=== PATIENT | female | born 1940 | race Caucasian/White ===

== ENCOUNTER 2017-08-13 16:20 | Emergency (ER) | payer MEDICARE ==
[~2017-08-13] VITALS: Ht 167.6 cm; Wt 61.2 kg
[~2017-08-13 16:20] MED LIST: ALEN35 PO; CALCIUM; MULVITA PO; Pepcid40 MG PO; RISE35; TRAM50 PO
[2017-08-13 16:46] LABS: BASOPHILS ABSOLUTE AUTO 0.06 K/mm3 (0.00-0.23); BASOPHILS PERCENT AUTO 1 % (0-2); EOSINOPHILS ABSOLUTE AUTO 0.03 K/mm3 (0.00-0.68); EOSINOPHILS PERCENT AUTO 0 % (0-6); Hemoglobin 12.7 g/dL (11.5-16.0); IMMATURE GRAN ABSOLUTE AUTO 0.05 K/mm3 (0.00-0.10); IMMATURE GRAN PERCENT AUTO 1 % (0-1); LYMPHOCYTES ABSOLUTE AUTO 1.71 K/mm3 (0.84-5.20); LYMPHOCYTES PERCENT AUTO 16 % (21-46); MONOCYTES ABSOLUTE AUTO 0.64 K/mm3 (0.16-1.47); MONOCYTES PERCENT AUTO 6 % (4-13); Mean Corpuscular HGB 28.8 pg (26.0-34.0); Mean Corpuscular HGB Conc 32.6 g/dL (31.5-36.5); Mean Corpuscular Volume 88 fL (80-100); Mean Platelet Volume 10.6 fL (9.1-12.4); NEUTROPHILS ABSOLUTE AUTO 8.33 K/mm3 (1.96-9.15); NEUTROPHILS PERCENT AUTO 77 % (41-73); Platelet Count 215 K/mm3 (150-400); RDW Coefficient Variation 12.6 % (11.7-14.2); Red Blood Cell Count 4.41 M/mm3 (3.80-5.20); White Blood Cell Count 10.82 K/mm3 (4.00-11.30)
[2017-08-13 16:56] LABS: Source, Urine Catheter
[2017-08-13 17:00] LABS: Bilirubin, Urine Neg (Neg); Blood, Urine 2+ (Neg); Glucose Qualitative, Urine Neg (Neg); Ketones, Urine Neg (Neg); Leukocyte Esterase, Urine Neg (Neg); Nitrite, Urine Neg (Neg); Protein, Urine Neg (Neg); Urobilinogen, Urine NORM (Normal)
[2017-08-13 17:04] LABS: International Normalized Ratio 1.05; Prothrombin Time Results 10.9 Sec (9.7-11.5)
[2017-08-13 17:09] LABS: Alanine Aminotransfer (ALT/SGP 16 U/L (12-78); Albumin, Blood 3.6 g/dL (3.4-5.0); Albumin/Globulin Ratio 1.2 (0.8-1.8); Alk Phos 78 U/L (50-136); Anion Gap 7 mmol/L (6-16); Aspartate Aminotrans (AST/SGOT 23 U/L (12-37); Bilirubin, Total 0.5 mg/dL (0.1-1.0); Blood Urea Nitrogen 12 mg/dL (8-24); Bun/Creatinine Ratio 16.3 (12.0-20.0); CO2, Blood 27 mmol/L (21-32); Calcium, Blood 8.8 mg/dL (8.5-10.1); Chloride, Blood 108 mmol/L (98-108); Creatinine, Blood 0.74 mg/dL (0.40-1.00); Globulin, Blood 3.1 g/dL (2.2-4.0); Glomerular Filtration Rate >60 (60-); Glucose, Blood 158 mg/dL (70-99); Potassium, Blood 3.7 mmol/L (3.5-5.5); Sodium, Blood 142 mmol/L (136-145); Total Protein, Blood 6.7 g/dL (6.4-8.2)
[2017-08-13 17:43] LABS: Appearance, Urine Clear (Clear); Color, Urine Pale Yellow (P-Yellow)
[2017-08-13 17:44] LABS: Bacteria Few /hpf; Squamous Epithelial Cells Not Seen /hpf (Few); White Blood Cells, Urine 0-2 /hpf (0-5)
== END 2017-08-13 17:15 | disposition short-term general hospital (02) ==
LOC: ER 16:20
PROVIDERS: Emergency Medicine
DX: I60.9 Nontraumatic subarachnoid hemorrhage, unspecified (principal); I62.00 Nontraumatic subdural hemorrhage, unspecified; K21.9 Gastro-esophageal reflux disease without esophagitis; E78.5 Hyperlipidemia, unspecified; Z87.891 Personal history of nicotine dependence; Z79.899 Other long term (current) drug therapy
CPT/HCPCS: 36415; 51702; 70450; 71045; 80053; 81001; 83735; 85025; 85610; 85730; 93005; 93010; 99285

== ENCOUNTER 2017-10-03 14:14 | Emergency (ER) | payer MEDICARE ==
[~2017-10-03] VITALS: Ht 162.6 cm; Wt 52.2 kg
[2017-10-03 14:50] LABS: BASOPHILS ABSOLUTE AUTO 0.05 K/mm3 (0.00-0.23); BASOPHILS PERCENT AUTO 1 % (0-2); EOSINOPHILS ABSOLUTE AUTO 0.03 K/mm3 (0.00-0.68); EOSINOPHILS PERCENT AUTO 0 % (0-6); Hematocrit 38.1 % (33.0-51.0); Hemoglobin 12.5 g/dL (11.5-16.0); IMMATURE GRAN ABSOLUTE AUTO 0.04 K/mm3 (0.00-0.10); IMMATURE GRAN PERCENT AUTO 1 % (0-1); LYMPHOCYTES ABSOLUTE AUTO 1.37 K/mm3 (0.84-5.20); LYMPHOCYTES PERCENT AUTO 21 % (21-46); MONOCYTES PERCENT AUTO 12 % (4-13); Mean Corpuscular HGB 29.6 pg (26.0-34.0); Mean Corpuscular HGB Conc 32.8 g/dL (31.5-36.5); Mean Corpuscular Volume 90 fL (80-100); Mean Platelet Volume 9.4 fL (9.1-12.4); NEUTROPHILS PERCENT AUTO 66 % (41-73); Platelet Count 252 K/mm3 (150-400); RDW Coefficient Variation 14.6 % (11.7-14.2); RDW Standard Deviation 48.6 fL (35.1-46.3); Red Blood Cell Count 4.23 M/mm3 (3.80-5.20); White Blood Cell Count 6.69 K/mm3 (4.00-11.30)
[2017-10-03 15:17] LABS: Anion Gap 8 mmol/L (6-16); Blood Urea Nitrogen 19 mg/dL (8-24); Bun/Creatinine Ratio 29.6 (12.0-20.0); CO2, Blood 29 mmol/L (21-32); Calcium, Blood 8.5 mg/dL (8.5-10.1); Chloride, Blood 101 mmol/L (98-108); Creatinine, Blood 0.64 mg/dL (0.40-1.00); Glomerular Filtration Rate >60 (60-); Glucose, Blood 105 mg/dL (70-99); Potassium, Blood 3.9 mmol/L (3.5-5.5); Sodium, Blood 138 mmol/L (136-145)
[2017-10-03 16:00] LABS: Source, Urine Catheter
[2017-10-03 16:04] LABS: Bilirubin, Urine Neg (Neg); Blood, Urine 2+ (Neg); Glucose Qualitative, Urine Neg (Neg); Ketones, Urine Neg (Neg); Leukocyte Esterase, Urine 3+ (Neg); Nitrite, Urine Pos (Neg); Protein, Urine 1+ (Neg); Urobilinogen, Urine 1+ (Normal)
[2017-10-03 16:23] LABS: Appearance, Urine Turbid (Clear); Color, Urine Yellow (P-Yellow)
[2017-10-03 16:24] LABS: White Blood Cells, Urine 50-100 /hpf (0-5)
[2017-10-03 16:25] LABS: Amorphous Light (0-Heavy); Bacteria Many /hpf; Squamous Epithelial Cells Rare /hpf (Few)
[2017-10-03] MEDS ORDERED: ALBU2.5V5 NEB (16:38)
[2017-10-03] MEDS ORDERED: ACET325 PO (16:38)
[2017-10-03] MEDS ORDERED: [UNRECOGNIZED DRUG - OTHER] PO (16:39)
[2017-10-03] MEDS ORDERED: Colace100 MG PO (16:39)
[2017-10-03] MEDS ORDERED: Milk Of Ma400 MG/5 M PO (16:40)
[2017-10-03] MEDS ORDERED: TAMS.4ER PO (16:40)
[2017-10-03] MEDS ORDERED: BISA10S PR (16:40)
[2017-10-03] MEDS ORDERED: MIRALAX17 GM PO (16:41)
[2017-10-03] MEDS ORDERED: ONDA4 PO (16:42)
[2017-10-03] MEDS ORDERED: Hair, Skin & N1 EACH PO (16:42)
[2017-10-03] MEDS ORDERED: FAMO40 PO (16:42)
[2017-10-03] MEDS ORDERED: TIZANIDINE HCL2 MG PO (16:43)
== END 2017-10-03 19:50 | disposition short-term general hospital (02) ==
LOC: ER 14:14
PROVIDERS: Emergency Medicine
DX: I26.99 Other pulmonary embolism without acute cor pulmonale (principal); Z88.5 Allergy status to narcotic agent; Z88.8 Allergy status to other drugs, medicaments and biological substances; Z79.899 Other long term (current) drug therapy; D64.9 Anemia, unspecified; K21.9 Gastro-esophageal reflux disease without esophagitis; Z87.891 Personal history of nicotine dependence
CPT/HCPCS: 36415; 71260; 80048; 81001; 83880; 84484; 85025; 87077; 87086; 87186; 93005; 93010; 93970; 96361; 96374; 99285; J0696; J7030; Q9967

== ENCOUNTER 2017-12-29 07:40 | Emergency (ER) | payer MEDICARE ==
[~2017-12-29] VITALS: Ht 165.1 cm; Wt 52.2 kg
[~2017-12-29 07:40] MED LIST changes: +ACET325 PO; +ALBU2.5V5 NEB; +BISA10S PR; +Colace100 MG PO; +FAMO40 PO; +Hair, Skin & N1 EACH PO; +MIRALAX17 GM PO; +Milk Of Ma400 MG/5 M PO; +ONDA4 PO; +TAMS.4ER PO; +TIZANIDINE HCL2 MG PO; +[UNRECOGNIZED DRUG - OTHER] PO
[2017-12-29 08:15] LABS: Source, Urine Catheter
[2017-12-29 08:28] LABS: BASOPHILS ABSOLUTE AUTO 0.05 K/mm3 (0.00-0.23); BASOPHILS PERCENT AUTO 1 % (0-2); EOSINOPHILS ABSOLUTE AUTO 0.08 K/mm3 (0.00-0.68); EOSINOPHILS PERCENT AUTO 1 % (0-6); Hematocrit 38.6 % (33.0-51.0); Hemoglobin 12.4 g/dL (11.5-16.0); IMMATURE GRAN ABSOLUTE AUTO 0.01 K/mm3 (0.00-0.10); IMMATURE GRAN PERCENT AUTO 0 % (0-1); LYMPHOCYTES ABSOLUTE AUTO 3.67 K/mm3 (0.84-5.20); LYMPHOCYTES PERCENT AUTO 51 % (21-46); MONOCYTES ABSOLUTE AUTO 0.65 K/mm3 (0.16-1.47); MONOCYTES PERCENT AUTO 9 % (4-13); Mean Corpuscular HGB 28.8 pg (26.0-34.0); Mean Corpuscular HGB Conc 32.1 g/dL (31.5-36.5); Mean Corpuscular Volume 90 fL (80-100); Mean Platelet Volume 9.8 fL (9.1-12.4); NEUTROPHILS ABSOLUTE AUTO 2.81 K/mm3 (1.96-9.15); NEUTROPHILS PERCENT AUTO 39 % (41-73); Platelet Count 281 K/mm3 (150-400); RDW Coefficient Variation 14.8 % (11.7-14.2); RDW Standard Deviation 48.9 fL (35.1-46.3); White Blood Cell Count 7.27 K/mm3 (4.00-11.30)
[2017-12-29 08:30] LABS: Blood, Urine 4+ (Neg); Glucose Qualitative, Urine Neg (Neg); Ketones, Urine 3+ (Neg); Leukocyte Esterase, Urine 3+ (Neg); Nitrite, Urine Neg (Neg); Protein, Urine 3+ (Neg); Specific Gravity, Urine 1.025 (1.003-1.022); Urobilinogen, Urine 1+ (Normal)
[2017-12-29 08:35] LABS: International Normalized Ratio 1.86; Prothrombin Time Results 18.5 Sec (9.7-11.5)
[2017-12-29 08:38] LABS: Alanine Aminotransfer (ALT/SGP 36 U/L (12-78); Albumin, Blood 1.9 g/dL (3.4-5.0); Albumin/Globulin Ratio 0.6 (0.8-1.8); Alk Phos 71 U/L (50-136); Anion Gap 10 mmol/L (6-16); Aspartate Aminotrans (AST/SGOT 39 U/L (12-37); Bilirubin, Total 0.3 mg/dL (0.1-1.0); Blood Urea Nitrogen 9 mg/dL (8-24); Bun/Creatinine Ratio 19.9 (12.0-20.0); CO2, Blood 29 mmol/L (21-32); Calcium, Blood 7.7 mg/dL (8.5-10.1); Chloride, Blood 104 mmol/L (98-108); Creatinine, Blood 0.45 mg/dL (0.40-1.00); Glomerular Filtration Rate >60 (60-); Glucose, Blood 73 mg/dL (70-99); Potassium, Blood 3.5 mmol/L (3.5-5.5); Sodium, Blood 143 mmol/L (136-145); Total Protein, Blood 4.9 g/dL (6.4-8.2); Troponin I <0.015 ng/mL (0.000-0.040)
[2017-12-29 08:56] LABS: Appearance, Urine Cloudy (Clear); Bilirubin, Urine 1+ (Neg); Color, Urine Yellow (P-Yellow)
[2017-12-29 09:01] LABS: White Blood Cells, Urine TNTC /hpf (0-5)
[2017-12-29 09:02] LABS: Bacteria Many /hpf; Red Blood Cells, Urine TNTC /hpf (0-2); Squamous Epithelial Cells Not Seen /hpf (Few); Yeast/Fungi Urine Many /hpf
[2017-12-29 09:03] LABS: Calcium Oxalate Crystals Few /hpf; Transitional Epithelial Cells Rare /hpf (0-Rare)
[2017-12-29] MEDS ORDERED: Macrobid 100 M100 MG PO (09:38)
== END 2017-12-29 10:20 | disposition home or self-care (01) ==
LOC: ER 07:40
PROVIDERS: Physician Assistant
DX: N39.0 Urinary tract infection, site not specified (principal); R79.1 Abnormal coagulation profile; R91.1 Solitary pulmonary nodule; D64.9 Anemia, unspecified; E03.9 Hypothyroidism, unspecified; K21.9 Gastro-esophageal reflux disease without esophagitis; J44.9 Chronic obstructive pulmonary disease, unspecified; Z88.8 Allergy status to other drugs, medicaments and biological substances; Z88.5 Allergy status to narcotic agent; Z79.899 Other long term (current) drug therapy; Z79.51 Long term (current) use of inhaled steroids; Z86.73 Personal history of transient ischemic attack (TIA), and cerebral infarction without residual deficits; Z87.891 Personal history of nicotine dependence
CPT/HCPCS: 36415; 71260; 80053; 81001; 83690; 83735; 83880; 84484; 85025; 85610; 85730; 87077; 87086; 87186; 93005; 93010; 96360; 99284-25; J7030; Q9967

== ENCOUNTER → 2019-05-07 | Outpatient (CLI) | payer OTHER ==
[~2019-05-07] MED LIST changes: +Macrobid 100 M100 MG PO; +TRAZ50 PO; +WARF2 PO; +WARF4 PO
== END | disposition home or self-care (01) ==
LOC: LAB 16:07 → LAB SHORT 16:07
DX: N39.0 Urinary tract infection, site not specified (principal)
CPT/HCPCS: 87086

== ENCOUNTER 2021-01-01 18:49 | Inpatient (IN) | payer OTHER ==
[~2021-01-01] VITALS: Ht 165.1 cm; Wt 68.0 kg
[2021-01-01 19:25] LABS: BASOPHILS ABSOLUTE AUTO 0.05 K/mm3 (0.00-0.23); BASOPHILS PERCENT AUTO 1 % (0-2); EOSINOPHILS ABSOLUTE AUTO 0.14 K/mm3 (0.00-0.68); EOSINOPHILS PERCENT AUTO 2 % (0-6); Hematocrit 40.5 % (33.0-51.0); Hemoglobin 13.3 g/dL (11.5-16.0); IMMATURE GRAN ABSOLUTE AUTO 0.18 K/mm3 (0.00-0.10); IMMATURE GRAN PERCENT AUTO 2 % (0-1); LYMPHOCYTES ABSOLUTE AUTO 3.24 K/mm3 (0.84-5.20); LYMPHOCYTES PERCENT AUTO 40 % (21-46); MONOCYTES ABSOLUTE AUTO 0.48 K/mm3 (0.16-1.47); MONOCYTES PERCENT AUTO 6 % (4-13); Mean Corpuscular HGB 29.2 pg (26.0-34.0); Mean Corpuscular HGB Conc 32.8 g/dL (31.5-36.5); Mean Corpuscular Volume 89 fL (80-100); Mean Platelet Volume 9.3 fL (9.1-12.4); NEUTROPHILS ABSOLUTE AUTO 4.03 K/mm3 (1.96-9.15); NEUTROPHILS PERCENT AUTO 50 % (41-73); Platelet Count 213 K/mm3 (150-400); RDW Coefficient Variation 14.1 % (11.7-14.2); RDW Standard Deviation 45.9 fL (35.1-46.3); Red Blood Cell Count 4.55 M/mm3 (3.80-5.20); White Blood Cell Count 8.12 K/mm3 (4.00-11.30)
[2021-01-01 19:48] LABS: Alanine Aminotransfer (ALT/SGP 18 U/L (12-78); Albumin, Blood 2.7 g/dL (3.4-5.0); Albumin/Globulin Ratio 0.8 (0.8-1.8); Alk Phos 79 U/L (50-136); Anion Gap 8 mmol/L (6-16); Aspartate Aminotrans (AST/SGOT 21 U/L (12-37); Bilirubin, Total 0.4 mg/dL (0.1-1.0); Blood Urea Nitrogen 14 mg/dL (8-24); Bun/Creatinine Ratio 24.1 (12.0-20.0); CO2, Blood 25 mmol/L (21-32); Calcium, Blood 8.4 mg/dL (8.5-10.1); Chloride, Blood 108 mmol/L (98-108); Creatinine, Blood 0.58 mg/dL (0.40-1.00); Globulin, Blood 3.6 g/dL (2.2-4.0); Glomerular Filtration Rate >60 (60-); Glucose, Blood 144 mg/dL (70-99); Potassium, Blood 3.7 mmol/L (3.5-5.5); Sodium, Blood 141 mmol/L (136-145); Total Protein, Blood 6.3 g/dL (6.4-8.2)
--- NOTE | 2021-01-02 05:53 | NUR ---
SHIFT SUMMARY PATIENT IS RESTING IN BED COMFORTABLY. BED IS IN LOW POSITION. CALL LIGHT IS IN REACH. NO ACUTE CHANGES OVERNIGHT. VITALS HAVE BEEN STABLE. PT ON 2L NC SATURATING >95%. WILL CONTINUE TO MONITOR. WILL GIVE REPORT TO DAY SHIFT RN. PATIENT IS STILL WITHDRAWN.
--- NOTE | 2021-01-02 05:56 | NUR ---
SHIFT SUMMARY PATIENT IS RESTING COMFORTABLLY IN BED. BED IS IN LOW POSITION. PATIENT WAS ADMITTED TO THE FLOOR AT AROUND 0140. PATIENT ARRIVED SEDATED AND WAS RESPONDING TO PAINFUL STIMULI. THIS MORNING PATIENT IS ABLE TO RESPOND TO VERBAL STIMULI BUT SHE HAS NOT OPENED HER EYES YET. NO SEIZURES SINCE SHE GOT TO THE FLOOR. VITALS HAVE BEEN STABLE. SIDERALES WERE PADDED FOR SEIZURE PRECAUTIONS. SUCTION IS SETUP. PATIENT IS ALSO ON TELE MONITORING. WILL GIVE REPORT TO DAY SHIFT RN.
[2021-01-02 08:18] LABS: BASOPHILS ABSOLUTE AUTO 0.04 K/mm3 (0.00-0.23); BASOPHILS PERCENT AUTO 0 % (0-2); EOSINOPHILS PERCENT AUTO 0 % (0-6); Hematocrit 41.1 % (33.0-51.0); Hemoglobin 13.2 g/dL (11.5-16.0); IMMATURE GRAN ABSOLUTE AUTO 0.13 K/mm3 (0.00-0.10); IMMATURE GRAN PERCENT AUTO 1 % (0-1); LYMPHOCYTES ABSOLUTE AUTO 1.54 K/mm3 (0.84-5.20); LYMPHOCYTES PERCENT AUTO 13 % (21-46); MONOCYTES PERCENT AUTO 5 % (4-13); Mean Corpuscular HGB 28.6 pg (26.0-34.0); Mean Corpuscular HGB Conc 32.1 g/dL (31.5-36.5); Mean Corpuscular Volume 89 fL (80-100); Mean Platelet Volume 9.5 fL (9.1-12.4); NEUTROPHILS PERCENT AUTO 81 % (41-73); Platelet Count 224 K/mm3 (150-400); RDW Coefficient Variation 14.2 % (11.7-14.2); RDW Standard Deviation 46.2 fL (35.1-46.3); Red Blood Cell Count 4.61 M/mm3 (3.80-5.20); White Blood Cell Count 12.01 K/mm3 (4.00-11.30)
[2021-01-02 08:37] LABS: Alanine Aminotransfer (ALT/SGP 20 U/L (12-78); Albumin, Blood 2.8 g/dL (3.4-5.0); Albumin/Globulin Ratio 0.8 (0.8-1.8); Alk Phos 77 U/L (50-136); Anion Gap 3 mmol/L (6-16); Aspartate Aminotrans (AST/SGOT 23 U/L (12-37); Bilirubin, Total 0.4 mg/dL (0.1-1.0); Blood Urea Nitrogen 12 mg/dL (8-24); Bun/Creatinine Ratio 21.7 (12.0-20.0); CO2, Blood 27 mmol/L (21-32); CPK Creatine Kinase 73 U/L (26-193); Chloride, Blood 111 mmol/L (98-108); Creatinine, Blood 0.55 mg/dL (0.40-1.00); Globulin, Blood 3.3 g/dL (2.2-4.0); Glomerular Filtration Rate >60 (60-); Glucose, Blood 137 mg/dL (70-99); Potassium, Blood 3.9 mmol/L (3.5-5.5); Sodium, Blood 141 mmol/L (136-145); Total Protein, Blood 6.1 g/dL (6.4-8.2); Troponin I 0.104 ng/mL (0.000-0.040)
[2021-01-02 16:02] LABS: CPK Creatine Kinase 74 U/L (26-193)
--- NOTE | 2021-01-02 18:28 | NUR ---
SHIFT SUMMARY PT ADMITTED FROM THE ED FOR RECURRENT SEIZURES. NO SEIZURES THIS SHIFT. PT UNRESPONSIVE FOR THE VAST MAJORITY OF THE SHIFT BUT EVENTUALLY DID WAKE UP AND IS A/O X3. DOES NOT SEEM TO RECALL THAT SHE HAD SEIZURES. GIVEN KEPPRA THIS AM. 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 PHYSICIAN NOTIFIED. PT TO HAVE MRI TOMORROW. WILL REPORT TO JERAMIE GORDON.
--- NOTE | 2021-01-03 01:17 | NUR ---
DR DE LA ROSA WAS INFORMED ABOUT THE PATIENT'S BLOOD PRESSURE OF 103/35 (63). THE DIASTOLIC WAS LOW AND RN WAS CONCERENED. MD STATED TO WATCH AND CONTINUE TO MONITOR THE PATIENT FOR ANY NEW CHANGES. NO NEW ORDERS.
[2021-01-03 04:37] LABS: BASOPHILS ABSOLUTE AUTO 0.06 K/mm3 (0.00-0.23); BASOPHILS PERCENT AUTO 1 % (0-2); EOSINOPHILS ABSOLUTE AUTO 0.12 K/mm3 (0.00-0.68); EOSINOPHILS PERCENT AUTO 2 % (0-6); Hematocrit 37.7 % (33.0-51.0); Hemoglobin 12.3 g/dL (11.5-16.0); IMMATURE GRAN ABSOLUTE AUTO 0.03 K/mm3 (0.00-0.10); IMMATURE GRAN PERCENT AUTO 0 % (0-1); LYMPHOCYTES PERCENT AUTO 27 % (21-46); MONOCYTES ABSOLUTE AUTO 0.68 K/mm3 (0.16-1.47); MONOCYTES PERCENT AUTO 9 % (4-13); Mean Corpuscular HGB 29.2 pg (26.0-34.0); Mean Corpuscular HGB Conc 32.6 g/dL (31.5-36.5); Mean Corpuscular Volume 90 fL (80-100); Mean Platelet Volume 9.6 fL (9.1-12.4); NEUTROPHILS ABSOLUTE AUTO 4.51 K/mm3 (1.96-9.15); NEUTROPHILS PERCENT AUTO 61 % (41-73); Platelet Count 188 K/mm3 (150-400); RDW Coefficient Variation 14.5 % (11.7-14.2); RDW Standard Deviation 47.3 fL (35.1-46.3); Red Blood Cell Count 4.21 M/mm3 (3.80-5.20)
[2021-01-03 04:54] LABS: Alanine Aminotransfer (ALT/SGP 18 U/L (12-78); Albumin, Blood 2.7 g/dL (3.4-5.0); Alk Phos 66 U/L (50-136); Anion Gap 3 mmol/L (6-16); Aspartate Aminotrans (AST/SGOT 20 U/L (12-37); Bilirubin, Total 0.7 mg/dL (0.1-1.0); Blood Urea Nitrogen 10 mg/dL (8-24); Bun/Creatinine Ratio 17.2 (12.0-20.0); CO2, Blood 29 mmol/L (21-32); Calcium, Blood 8.1 mg/dL (8.5-10.1); Chloride, Blood 111 mmol/L (98-108); Creatinine, Blood 0.58 mg/dL (0.40-1.00); Globulin, Blood 2.8 g/dL (2.2-4.0); Glomerular Filtration Rate >60 (60-); Glucose, Blood 79 mg/dL (70-99); Potassium, Blood 3.7 mmol/L (3.5-5.5); Sodium, Blood 143 mmol/L (136-145); Total Protein, Blood 5.5 g/dL (6.4-8.2)
--- NOTE | 2021-01-03 06:26 | NUR ---
SHIFT SUMMARY PATIENT IS RESTING IN BED COMFORTABLY. BED IS IN LOW POSITION. CALL LIGHT IS IN REACH. PATIENT IS CONFUSED AND HAD TO BE REORIENTED MULTIPLE TIMES. NO SEIZURES DURING THE NIGHT. PATIENT HAD MULTIPLE BOWEL MOVEMENTS. VITALS WERE STABLE EXCEPT BP WHICH MD WAS NOTIFIED ABOUT SEE PREVIOUS NOTES. WILL GIVE REPORT TO DAY SHIFT NURSE.
[2021-01-03 06:46] LABS: Source, Urine Catheter
[2021-01-03 06:49] LABS: Appearance, Urine Clear (Clear); Bilirubin, Urine Neg (Neg); Blood, Urine 4+ (Neg); Color, Urine Yellow (P-Yellow); Glucose Qualitative, Urine Neg (Neg); Ketones, Urine Neg (Neg); Leukocyte Esterase, Urine Neg (Neg); Nitrite, Urine Neg (Neg); Protein, Urine Neg (Neg); Specific Gravity, Urine 1.015 (1.003-1.022); Urobilinogen, Urine NORM (Normal)
[2021-01-03 07:00] LABS: Bacteria Not Seen /hpf; Squamous Epithelial Cells Rare /hpf (Few); White Blood Cells, Urine 0-2 /hpf (0-5)
[2021-01-03] MEDS ORDERED: Calcium Carbon500 MG PO (11:40)
[2021-01-03] MEDS ORDERED: ASPI81CH PO (11:40)
[2021-01-03] MEDS ORDERED: ARTHRITIS PAIN50 GM TOP (11:41)
[2021-01-03] MEDS ORDERED: Diastat2.5 MG PR (16:43)
[2021-01-03] MEDS ORDERED: LEVE500 PO (16:44)
--- NOTE | 2021-01-03 18:44 | NUR ---
AWAITING TRANSPORT FOR DISCHARGE PT SON UPDATED AND EDUCATED ON DC INSTUCTIONS & NEW MEDS OVER THE PHONE. PT TO GIVE PM DOSE OF KEPPRA AND STATES HE UNDERSTANDS. WAITING ON [facility] TO METER INSPECTOR THE PT. THIS RN CALLED AND CONFIRMED THEY WILL STILL BE COMING TO GET THE PT TONIGHT. PT SON UPDATED ABOUT THIS. IV REMOVED & INTACT. PT UP IN BED, EATING DINNER. CALL LIGHT IN REACH.
--- NOTE | 2021-01-03 19:05 | NUR ---
PT DISCHARGED PICKED UP BY [facility]. KIRSTEN, PTS SON NOTIFIED.
--- NOTE | 2021-01-04 08:24 | NUR ---
01/04/21 (HOSPITAL SYSTEM DOWN YESTERDAY, COULD NOT PUT IN NOTE UNTIL TODAY) - KJB PER CHART REVIEW WITH DR. POLLARD, PT IS HAVE MRI, SPEECH EVAL, OT AND PT TODAY. PLAN IS D/C HOME TODAY. PT WILL NEED MEDICAL TRANSPORT (GURNY) BECAUSE THE PT IS NOT ABLE TO BEND TO SIT UP. CALLED SON AND HE REPORTS THAT WHEN SHE WAS TAKEN TO THE HOSPITAL THEY HAD TO USE 4 PEOPLE AND A SLING TO GET HER OUT OF THE HOME. SON REPORTS THAT PT HAS A CAREGIVER WITH [employer] AND USED TO BE ACTIVE WITH [employer] SON IS HER CAREGIVER IN THEIR SINGLE-STORY HOME. THE HOME HAS WORKING UTILITIES AND 4-5 STAIRS IN THE FRONT OF THE HOME. SON REPORTS THAT A GURNEY IS NOT ABLE TO MAKE THE TURNS INTO THE HOME. SON REPORTS THAT AT PT MAKES TELEHEALTH AND [facility] IN [place] IS HER PHARMACY. JESSICA CURTIS IS THE PT S POA. SON EXPRESSED A NEED FOR GETTING HELP TO BUILD A RAMP. HE HAS THE MATERIALS BUT IS NOT PHYSICAL ABLE TO BUILD IT. WILL REACH OUT TO THE CLINIC TO SEE IF THERE IS ANYTHING THEY CAN COME UP WITH TO HELP HIM. -KJB 01/03/21- PER CHART REVIEW WITH DR. POLLARD, PT COULD POTENTIALLY D/C HOME TODAY. SHE IS GOING TO ORDER AND MRI, SPEECH EVAL & OT/PT. PT WILL NEED TRANSPORTATION HOME AND HELP GETTING THE PT INTO BED, SON IS NOT ABLE TO DO THIS BY HIMSELF. WILL LET TRANSPORT KNOW AT DISCHARGE.-KJB
== END 2021-01-03 19:05 | disposition home health service (06) | DRG 57 ==
LOC: ER 18:49 → SURS 18:50
PROVIDERS: Family Medicine; Student in an Organized Health Care Education/Training Program; ADMIT Internal Medicine
DX: I69.298 Other sequelae of other nontraumatic intracranial hemorrhage (principal); R56.9 Unspecified convulsions; G93.89 Other specified disorders of brain; E86.0 Dehydration; M19.90 Unspecified osteoarthritis, unspecified site; I10 Essential (primary) hypertension; R25.1 Tremor, unspecified; R79.89 Other specified abnormal findings of blood chemistry; K43.9 Ventral hernia without obstruction or gangrene; R94.31 Abnormal electrocardiogram [ECG] [EKG]; J44.9 Chronic obstructive pulmonary disease, unspecified; K21.9 Gastro-esophageal reflux disease without esophagitis; E89.0 Postprocedural hypothyroidism; N31.9 Neuromuscular dysfunction of bladder, unspecified; I69.20 Unspecified sequelae of other nontraumatic intracranial hemorrhage; Z86.718 Personal history of other venous thrombosis and embolism; Z74.01 Bed confinement status; Z86.69 Personal history of other diseases of the nervous system and sense organs; Z87.891 Personal history of nicotine dependence; Z88.5 Allergy status to narcotic agent; Z88.8 Allergy status to other drugs, medicaments and biological substances; Z79.01 Long term (current) use of anticoagulants; Z79.899 Other long term (current) drug therapy
CPT/HCPCS: 36415; 70450; 70549; 70551; 80053; 81001; 82550; 83735; 84484; 85025; 92610; 93005; 93010; 96361; 96365; 96366; 96372-59; 96375; 96376; 99285-25; A9579; G0378; J1650; J1953; J2060; J7030

== ENCOUNTER → 2023-11-14 | Outpatient (CLI) | payer OTHER ==
[~2023-11-14] MED LIST changes: +ARTHRITIS PAIN50 GM TOP; +ASPI81CH PO; +Calcium Carbon500 MG PO; +Diastat2.5 MG PR; +LEVE500 PO
[2023-11-14 10:54] LABS: Appearance, Urine Clear (Clear); Bilirubin, Urine Neg (Neg); Blood, Urine 3+ (Neg); Color, Urine Yellow (P-Yellow); Glucose Qualitative, Urine Neg (Neg); Ketones, Urine Neg (Neg); Leukocyte Esterase, Urine 2+ (Neg); Nitrite, Urine Neg (Neg); Protein, Urine Neg (Neg); Specific Gravity, Urine 1.015 (1.003-1.022); Urobilinogen, Urine NORM (Normal)
[2023-11-14 11:19] LABS: Amorphous Light (0-Heavy); Bacteria Few /hpf; Squamous Epithelial Cells Rare /hpf (Few)
== END | disposition home or self-care (01) ==
LOC: LAB SHORT 09:30
PROVIDERS: Family Medicine
DX: I63.9 Cerebral infarction, unspecified (principal); G40.909 Epilepsy, unspecified, not intractable, without status epilepticus; N39.0 Urinary tract infection, site not specified; R23.0 Cyanosis
CPT/HCPCS: 81001

== ENCOUNTER → 2024-10-10 | Outpatient (CLI) | payer OTHER | END | disposition home or self-care (01) | LOC: LAB 11:23 → LAB SHORT 11:23 | DX: T14.8XXA Other injury of unspecified body region, initial encounter (principal) | CPT/HCPCS: 87070; 87077; 87147; 87186; 87205 ==

== ENCOUNTER → 2025-01-08 | Outpatient (CLI) | payer OTHER ==
[2025-01-08 16:47] LABS: Campylobacter Sp Not Detected (NOT DETECT); E. Coli O157 Not Detected (NOT DETECT); Enteroaggregative E. coli-EAEC Not Detected (NOT DETECT); Enteropathogenic E. coli-EPEC Not Detected (NOT DETECT); Enterotoxigenic E. coli-ETEC Not Detected (NOT DETECT); Salmonella Sp Not Detected (NOT DETECT); Shiga Toxin-prod E. coli-STEC Not Detected (NOT DETECT); Shigella/Enteroin E. coli-EIEC Not Detected (NOT DETECT); Vibrio Sp Not Detected (NOT DETECT)
== END ==
LOC: LAB 11:16 → LAB SHORT 11:16
PROVIDERS: Family Medicine
DX: R19.7 Diarrhea, unspecified (principal)
CPT/HCPCS: 87507